=== PATIENT | male | born 1995 | race Caucasian/White ===

== ENCOUNTER 2017-04-26 02:24 | Emergency (ER) | payer MEDICAID ==
[~2017-04-26] VITALS: Ht 170.2 cm; Wt 59.0 kg
--- NOTE | 2017-04-26 02:27 | NUR ---
PATIENT BIB BLS TO ER BED 5.
[2017-04-26 02:33] VITALS: BP 127/83
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
[2017-04-26 02:59] LABS: HEMOGLOBIN 16.6 g/dL (12.0-18.0); MEAN CORPUSCULAR HEMOGLOBIN 29 pg (27-31); MEAN CORPUSCULAR HGB CONC 33 g/dL (33-37); MEAN CORPUSCULAR VOLUME 87 fL (80-94); PLATELET COUNT (AUTO) 187 K/uL (140-450); RED BLOOD CELL COUNT(AUTO) 5.75 MIL/uL (4.20-6.10); RED CELL DISTRIBUTION WIDTH 13.1 % (11.6-13.7); WHITE BLOOD COUNT (AUTO) 11.5 K/uL (4.5-11.0)
[2017-04-26 03:13] LABS: ANION GAP 18.2 (8-16); CALCIUM 8.3 mg/dL (8.5-10.1); CARBON DIOXIDE 22.2 mmol/L (21-32); CREATININE 0.9 mg/dL (0.7-1.3); POTASSIUM 3.4 mmol/L (3.5-5.1)
--- NOTE | 2017-04-26 03:15 | NUR ---
PATIENT BEING EVALUATED BY DR. THIBODEAUX.
[2017-04-26 03:19] LABS: ALBUMIN 4.1 g/dL (3.4-5.0); TOTAL BILIRUBIN 0.5 mg/dL (0.0-1.0); TOTAL PROTEIN, SERUM 7.5 g/dL (6.4-8.2)
[2017-04-26 03:22] LABS: LYMPHOCYTES % (MANUAL) 13 % (20-46); MONOCYTES % (MANUAL) 4 % (5-12); NEUTROPHILS % (MANUAL) 83 (43-65)
--- NOTE | 2017-04-26 03:38 | NUR ---
PT RESTING IN BED, C/O PAIN ER MD NOTIFIED.
[2017-04-26 04:28] LABS: AMPHETAMINE, URINE NEGATIVE ng/ml (NEG <=1000); BARBITURATE, URINE NEGATIVE ng/ml (NEG <=200); BENZODIAZEPINE, URINE NEGATIVE ng/mL (NEG <=200); CANNABINOID, URINE NEGATIVE ng/mL (NEG <=50); COCAINE, URINE NEGATIVE ng/mL (NEG <=300); OPIATE, URINE NEGATIVE ng/mL (NEG <=2000); PHENCYCLIDINE SCREEN,URINE NEGATIVE ng/mL (NEG <=25)
--- NOTE | 2017-04-26 04:31 | NUR ---
PT TAKEN FOR FACIAL BONES CT VIA XGraphRNEY. VSS, NO S/S OF DITRESS NOTED AT THIS MOMENT.
--- NOTE | 2017-04-26 04:53 | NUR ---
PT ASLEEP, ON MONITOR VSS, NO S/S OF DISTRESS NOTED AT THE MOMENT.
[2017-04-26] MEDS ORDERED: NACL 0.9% 1,000 ML IV ONE (06:05)
[2017-04-26] MEDS ORDERED: ONDANSETRON 4 MG/2 ML VIAL IVP ONE (06:05)
[2017-04-26] MEDS ORDERED: KETOROLAC 30 MG/ML VIAL IVP ONE (06:05)
--- NOTE | 2017-04-26 06:25 | NUR ---
PT ASLEEP, VSS. VERBALIZED LESS PAIN AFTER PAIN MED GIVEN.
--- NOTE | 2017-04-26 07:15 | NUR ---
Pt report given to ERLIN IRAHETA. Transfer of care at this time.
--- NOTE | 2017-04-26 09:24 | NUR ---
AAO PT EATING BREAKFAST AT THIS TIME, VSS, WILL CONTINUE TO MONITOR
[2017-04-26 11:19] VITALS: BP 116/69
== END 2017-04-26 11:19 | disposition home or self-care (01) ==
LOC: MED 02:24
DX: S06.0X9A Concussion with loss of consciousness of unspecified duration, initial encounter (principal); S00.83XA Contusion of other part of head, initial encounter; F10.129 Alcohol abuse with intoxication, unspecified; Y04.2XXA Assault by strike against or bumped into by another person, initial encounter; Y93.89 Activity, other specified; Y92.89 Other specified places as the place of occurrence of the external cause; Y99.8 Other external cause status
CPT/HCPCS: 36415; 70450; 70486; 80053; 80305; 85025; 96361; 96374; 96375; 99285; G0482; J1885; J2405; J7030